=== PATIENT | female | born 1945 | race Hispanic/Latino ===

== ENCOUNTER 2018-11-13 13:01 | Emergency (ER) | payer OTHER ==
[~2018-11-13 13:01] MED LIST changes: -DIATR MEGLU/DIATRIZOATE SODIUM 30 ML BOTTLE ONE
[2018-11-13] MEDS ORDERED: DIATR MEGLU/DIATRIZOATE SODIUM 30 ML BOTTLE ONE (14:40)
== END 2018-11-13 15:40 | disposition home or self-care (01) ==
LOC: EDH 13:01
DX: K94.23 Gastrostomy malfunction (principal); C06.9 Malignant neoplasm of mouth, unspecified; E11.9 Type 2 diabetes mellitus without complications
CPT/HCPCS: 43762; 74018 ×2; 99284; Q9963

== ENCOUNTER → 2018-11-13 | Outpatient (CLI) | payer OTHER ==
[~2018-11-13] MED LIST: ASPI-555 PO; DIATR MEGLU/DIATRIZOATE SODIUM 30 ML BOTTLE ONE; FERS325 PO; LORA-705 PO; METF25CR MC; MULT-1192 PO; SENN-141 PO
== END | disposition home or self-care (01) ==
LOC: RAH 11:54
PROVIDERS: ATTEND Physician Assistant Medical
DX: K94.20 Gastrostomy complication, unspecified (principal); M47.815 Spondylosis without myelopathy or radiculopathy, thoracolumbar region; Z90.49 Acquired absence of other specified parts of digestive tract
CPT/HCPCS: 74018; Q9963

== ENCOUNTER → 2018-12-21 | Outpatient (CLI) | payer OTHER ==
[2018-12-21 09:49] LABS: BASOPHILS % (AUTO) 0.7 % (0.0-5.0); EOSINOPHILS % (AUTO) 6.7 % (0.0-8.0); HEMATOCRIT 33.1 % (36-48); LYMPHOCYTES % (AUTO) 8.7 % (21.0-51.0); MEAN CORPUSCULAR HEMOGLOBIN 35.2 pg (27.0-33.0); MEAN CORPUSCULAR HGB CONC 35.2 g/dL (32.0-36.0); MEAN CORPUSCULAR VOLUME 99.9 fL (79-99); MONOCYTES % (AUTO) 6.7 % (3.0-13.0); NEUTROPHILS % (AUTO) 77.2 % (40.0-77.0); PLATELET COUNT (AUTO) 169 K/uL (130-400); RED BLOOD CELL COUNT(AUTO) 3.32 MIL/uL (4.00-5.50); RED CELL DISTRIBUTION WIDTH 12.8 % (11.0-15.5); WHITE BLOOD COUNT (AUTO) 4.9 K/uL (4.8-10.8)
[2018-12-21 10:00] LABS: INR 1.05 (0.85-1.15)
[2018-12-21 10:01] LABS: % IRON SATURATION 18.6 % (22-44)
[2018-12-21 10:03] LABS: ALBUMIN 3.2 g/dL (3.5-5.0); BILIRUBIN,TOTAL 0.5 mg/dL (0.2-1.0); CREATININE 0.7 mg/dL (0.5-1.5); POTASSIUM 4.9 mmol/L (3.5-5.1); TOTAL PROTEIN, SERUM 7.8 g/dL (6.0-8.3)
[2018-12-22 14:53] LABS: ALPHA-1-ANTITRYPSIN 214 mg/dL (90-200)
== END | disposition home or self-care (01) ==
LOC: RAH 08:46
PROVIDERS: ATTEND Internal Medicine Gastroenterology
DX: I86.8 Varicose veins of other specified sites (principal); K74.60 Unspecified cirrhosis of liver; R16.1 Splenomegaly, not elsewhere classified; Z90.49 Acquired absence of other specified parts of digestive tract
CPT/HCPCS: 36415; 76700; 80053; 82103; 82105; 82172; 82247; 82390; 82977; 83010; 83516; 83540; 83550; 83883; 84460; 85025; 85610; 86038; 86255; 86704; 86706; 86708; 93975

== ENCOUNTER 2018-12-30 20:03 | Emergency (ER) | payer OTHER | END 2018-12-30 22:32 | disposition home or self-care (01) | LOC: EDH 20:03 | DX: K59.00 Constipation, unspecified (principal); R11.10 Vomiting, unspecified; E11.9 Type 2 diabetes mellitus without complications; Z98.890 Other specified postprocedural states; Z85.818 Personal history of malignant neoplasm of other sites of lip, oral cavity, and pharynx | CPT/HCPCS: 74018; 74176 ==